=== PATIENT | female | born 1960 | race Caucasian/White ===

== ENCOUNTER 2016-03-22 00:50 | Observation (INO) | payer BC ==
[~2016-03-22] VITALS: Ht 170.2 cm; Wt 113.0 kg
[2016-03-22 00:54] VITALS: BP 142/80; PULSE 84; RESP 15; TEMP 97.5; O2SAT 98
[2016-03-22] MEDS ORDERED: LIPI10TA PO (03:14)
[2016-03-22] MEDS ORDERED: SODIUM CHLORIDE 0.9% FLUSH 5 ML FLUSH IVF PRN ×2 (03:30→05:15)
[2016-03-22 03:53] LABS: AUTOMATED NEUTROPHIL # 4.5 TH/MM3 (1.8-7.7); BASOPHIL # 0.1 TH/MM3 (0-0.2); BASOPHIL % 0.8 % (0.0-2.0); EOSINOPHIL # 0.2 TH/MM3 (0-0.4); EOSINOPHIL % 2.6 % (0.0-4.0); HEMATOCRIT 39.7 % (35.0-46.0); HEMO FLAGS DIFF FINAL; LYMPH % 25.8 % (9.0-44.0); LYMPHOCYTE # 1.9 TH/MM3 (1.0-4.8); MEAN CELL VOLUME 87.7 FL (80.0-100.0); MEAN CORPUSCULAR HEMOGLOBIN 30.4 PG (27.0-34.0); MEAN CORPUSCULAR HGB CONC 34.6 % (32.0-36.0); MONO % 10.7 % (0.0-8.0); NEUT % 60.1 % (16.0-70.0); PLATELET COUNT 316 TH/MM3 (150-450); RED BLOOD COUNT 4.52 MIL/MM3 (4.00-5.30); RED CELL DISTRIBUTION WIDTH 12.9 % (11.6-17.2); WHITE BLOOD COUNT 7.5 TH/MM3 (4.0-11.0)
[2016-03-22] MEDS ORDERED: RESP: ALBUTEROL 2.5 MG/IPRATROPIUM 0.5 MG NEB (SCH) NEB ONE (04:00)
[2016-03-22 04:02] LABS: ALT (GPT) 22 U/L (10-53); ANION GAP 5 MEQ/L (5-15); AST (GOT) 12 U/L (15-37); BICARBONATE 31.9 MEQ/L (21.0-32.0); BLOOD UREA NITROGEN 10 MG/DL (7-18); CHLORIDE 105 MEQ/L (98-107); GLOMERULAR FILTRATION RATE 92 ML/MIN (>89); MAGNESIUM 2.3 MG/DL (1.5-2.5); POTASSIUM 4.1 MEQ/L (3.5-5.1); SODIUM (NA) 142 MEQ/L (136-145)
[2016-03-22 04:07] LABS: ALKALINE PHOSPHATASE 84 U/L (45-117); APTT (PATIENT) 29.7 SEC (24.3-30.1); PROTHROMBIN TIME - PATIENT 10.8 SEC (9.8-11.6); TOTAL BILIRUBIN ADULT 0.4 MG/DL (0.2-1.0)
--- NOTE | 2016-03-22 04:30 | RADRPT ---
EXAM DATE/TIME: 03/22/2016 04:06 [facility] COMPARISON: No previous studies available for comparison. INDICATIONS : Patient states chest pains. MEDICAL HISTORY : Hypercholesterolemia. SURGICAL HISTORY : None. ENCOUNTER: Initial ACUITY: 1 day PAIN SCORE: 5/10 LOCATION: Bilateral chest FINDINGS: A single view of the chest demonstrates the lungs to be symmetrically aerated without evidence of mas s, infiltrate or effusion. The cardiomediastinal contours are unremarkable. Osseous structures are intact. CONCLUSION: No acute disease. Stanley Conde MD on March 22, 2016 at 4:29 Board Certified Radiologist. This report was verified electronically.
[2016-03-22 05:35] VITALS: O2SAT 98
[2016-03-22 05:52] VITALS: BP 109/64; PULSE 66; RESP 18; O2SAT 96
--- NOTE | 2016-03-22 06:11 | PD ---
HPI Chief Complaint: Chest Pain Time Seen by Provider: 03:45 Travel History International Travel<30 days: No Contact w/Intl Traveler<30days: No Traveled to known affect area: No History of Present Illness HPI Patient is a 55-year-old female presents to emergency department today with chest pain radiating to her neck and jaw and bilateral upper extremities. Patient states this is never happened to her before as far as the palpitations and her feeling in her chest. No history of heart attack in the past no history of blood clots. Patient states that accompanied with her chest pain a she is also had some shortness of breath as well as some nausea without vomiting. Her neck pain is fairly chronic but the shortness of breath prompted her come in and be seen today. Denies history of stasis or long trips recently. Denies any injury to her legs or blood clots in the legs. Denies any fever or cough. No interventions prior to arrival. Symptoms of been happening for approximately 4 hours prior to me seeing her. PFSH Past Medical History Arthritis: Yes (back ) High Cholesterol: Yes Gastrointestinal Disorders: Yes (ibs) Medical other: Yes (fibromyalgia, chronic pain ) Tetanus Vaccination: Unknown Influenza Vaccination: No ?: Not : 3 Para: 2 Miscarriage: 1 Past Surgical History Section: Yes Cholecystectomy: Yes Hysterectomy: Yes Other Surgery: Yes (bile duct surgery ) Social History Alcohol Use: Yes (occasional ) Tobacco Use: No Substance Use: No Allergies-Medications (Allergen,Severity, Reaction): Coded Allergies: No Known Allergies (Unverified , 03/22/16) Reported Meds & Prescriptions Reported Meds & Active Scripts Active Reported Lipitor (Atorvastatin Calcium) 10 Mg Tab 10 Mg PO HS Review of Systems Except as stated in HPI: all other systems reviewed are Neg Physical Exam Narrative GENERAL: Well-developed well-nourished, overweight in no apparent distress. SKIN: Warm and dry. HEAD: Atraumatic. Normocephalic. EYES: Pupils equal and round. No scleral icterus. No injection or drainage. ENT: No nasal bleeding or discharge. Mucous membranes pink and moist. NECK: Trachea midline. No JVD. CARDIOVASCULAR: Regular rate and rhythm. No murmur appreciated. RESPIRATORY: No accessory muscle use. Clear to auscultation. Breath sounds equal bilaterally. GASTROINTESTINAL: Abdomen soft, non-tender, nondistended. Hepatic and splenic margins not palpable. MUSCULOSKELETAL: No obvious deformities. No clubbing. No cyanosis. No edema. NEUROLOGICAL: Awake and alert. No obvious cranial nerve deficits. Motor grossly within normal limits. Normal speech. PSYCHIATRIC: Appropriate mood and affect; insight and judgment normal. Data Data Last Documented VS Vital Signs Date Time Temp Pulse Resp B/P Pulse Ox O2 Delivery O2 Flow Rate FiO2 03/22/16 00:54 97.5 84 15 142/80 98 Room Air Orders Electrocardiogram (03/22/16 01:17) Complete Blood Count With Diff (03/22/16 03:24) Comprehensive Metabolic Panel (03/22/16 03:24) Magnesium (Mg) (03/22/16 03:24) Prothrombin Time / Inr (Pt) (03/22/16 03:24) Act Partial Throm Time (Ptt) (03/22/16 03:24) Troponin I (03/22/16 03:24) Chest, Single Ap (03/22/16 03:24) Ecg Monitoring (03/22/16 03:24) Bilateral Bp Monitoring (03/22/16 03:24) Iv Access Insert/Monitor (03/22/16 03:24) Oximetry (03/22/16 03:24) Oxygen Administration (03/22/16 03:24) Sodium Chloride 0.9% Flush (Ns Flush) (03/22/16 03:30) Albuterol-Ipratropium Neb (Duoneb Neb) (03/22/16 04:00) D-Dimer (03/22/16 04:08) Activity Bed Rest With Brp (03/22/16 05:10) Vital Signs (Adult) Q4H (03/22/16 05:10) Cardiac Rhythm .As Directed (03/22/16 05:10) ^ Notify Dr: Other .PRN (03/22/16 05:10) ^ Notify Dr. Parameters (03/22/16 05:10) Resp Oxygen Nasal Cannula (03/22/16 ) Ckmb (Isoenzyme) Profile (03/22/16 05:10) Ckmb (Isoenzyme) Profile (03/22/16 08:10) Troponin I (03/22/16 05:10) Troponin I (03/22/16 08:10) Electrocardiogram (03/22/16 05:10) Electrocardiogram (03/22/16 08:10) ^ Obtain (03/22/16 05:10) Sodium Chloride 0.9% Flush (Ns Flush) (03/22/16 05:15) Sodium Chloride 0.9% Flush (Ns Flush) (03/22/16 09:00) Admit Order (Ed Use Only) (03/22/16 ) Labs Laboratory Tests Test 03/22/16 03:05 White Blood Count 7.5 TH/MM3 Red Blood Count 4.52 MIL/MM3 Hemoglobin 13.7 GM/DL Hematocrit 39.7 % Mean Corpuscular Volume 87.7 FL Mean Corpuscular Hemoglobin 30.4 PG Mean Corpuscular Hemoglobin 34.6 % Concent Red Cell Distribution Width 12.9 % Platelet Count 316 TH/MM3 Mean Platelet Volume 8.2 FL Neutrophils (%) (Auto) 60.1 % Lymphocytes (%) (Auto) 25.8 % Monocytes (%) (Auto) 10.7 % Eosinophils (%) (Auto) 2.6 % Basophils (%) (Auto) 0.8 % Neutrophils # (Auto) 4.5 TH/MM3 Lymphocytes # (Auto) 1.9 TH/MM3 Monocytes # (Auto) 0.8 TH/MM3 Eosinophils # (Auto) 0.2 TH/MM3 Basophils # (Auto) 0.1 TH/MM3 CBC Comment DIFF FINAL Differential Comment Prothrombin Time 10.8 SEC Prothromb Time International 1.0 RATIO Ratio Activated Partial 29.7 SEC Thromboplast Time D-Dimer Quantitative (PE/DVT) 0.30 MG/L FEU Sodium Level 142 MEQ/L Potassium Level 4.1 MEQ/L Chloride Level 105 MEQ/L Carbon Dioxide Level 31.9 MEQ/L Anion Gap 5 MEQ/L Blood Urea Nitrogen 10 MG/DL Creatinine 0.67 MG/DL Estimat Glomerular Filtration 92 ML/MIN Rate Random Glucose 99 MG/DL Calcium Level 9.4 MG/DL Magnesium Level 2.3 MG/DL Total Bilirubin 0.4 MG/DL Aspartate Amino Transf 12 U/L (AST/SGOT) Alanine Aminotransferase 22 U/L (ALT/SGPT) Alkaline Phosphatase 84 U/L Troponin I LESS THAN 0.02 NG/ML Total Protein 7.0 GM/DL Albumin 3.6 GM/DL MDM Medical Decision Making Medical Screen Exam Complete: Yes Emergency Medical Condition: Yes Differential Diagnosis Fibromyalgia, ACS, AMI, STEMI, NSTEMI, PE unlikely, pneumonia unlikely Narrative Course Patient was roomed in the emergency department, EKG is reassuring. Troponin negative, d-dimer negative. Patient states her pain is been resolved since lying in the stretcher. Declined any pain medicine in the ER. She was given aspirin emergency department, she declined oxygen. Discussed with her that while it is unlikely that she is having significant cardiac event I cannot prove this and discussed stress testing as either an inpatient and outpatient she opts for inpatient at this time. We'll be placing the chest pain center. Diagnosis Primary Impression: Chest pain Qualified Code: R07.9 - Chest pain, unspecified type Admitting Information Admitting Physician Requests: Observation Condition: Stable mDitry Hussein MD Mar 22, 2016 06:11
[2016-03-22] MEDS ORDERED: ASPIRIN 81 MG CHEW TAB CHEW ONE (06:15)
[2016-03-22 06:57] VITALS: BP 107/58; O2SAT 97
[2016-03-22 08:03] LABS: CREATINE KINASE 59 U/L (26-192)
[2016-03-22 09:00] VITALS: BP 119/70; PULSE 66; RESP 18; O2SAT 96
[2016-03-22] MEDS ORDERED: SODIUM CHLORIDE 0.9% FLUSH 5 ML FLUSH IVF SCH (09:00)
[2016-03-22 10:20] LABS: CREATINE KINASE 56 U/L (26-192)
[2016-03-22] MEDS ORDERED: REGADENOSON INJ 0.4 MG/5 ML SYR ONE (11:42)
[2016-03-22 12:41] LABS: HDL CHOLESTEROL 56.8 MG/DL (40.0-60.0)
--- NOTE | 2016-03-22 13:21 | RADRPT ---
EXAM DATE/TIME: 03/22/2016 11:04 [facility] COMPARISON: No previous studies available for comparison. INDICATIONS : Chest pain radiating to the neck, jaw and bilateral upper extremities with dyspnea and nausea. Angina . DOSE: 34.9 mCi Tc99m Myoview at stress. 11.0 mCi Tc99m Myoview at rest. 0.4 mg Lexiscan STRESS SYMPTOMS: Shortness of breath with a headache. EJECTION FRACTION: > 70% MEDICAL HISTORY : Hypercholesterolemia. SURGICAL HISTORY : Hysterectomy. Cholecystectomy. ENCOUNTER: Initial ACUITY: 1 day PAIN SCALE: 7/10 LOCATION: chest TECHNIQUE: The patient underwent pharmacologic stress with infusion of prescribed dose. Continuous ECG tracing was monitored during stress. Gated SPECT imaging was performed after stress and conventional SPECT i maging was performed at rest. The examination was performed on a SPECT/CT scanner, both attenuation and non-corrected datasets were reviewed. FINDINGS: DISTRIBUTION: The maximum perfused segment at stress is in the septal wall. PERFUSION STUDY: The pattern of perfusion at stress is within normal limits. GATED STUDY: There is intact wall motion and thickening without hypokinetic or dyskinetic segments. CONCLUSION: Normal examination. RISK CATEGORY: Low (<1% Annual Mortality Rate) Felipe Adrian MD on March 22, 2016 at 13:16 Board Certified Radiologist. This report was verified electronically.
--- NOTE | 2016-03-22 14:36 | EKG ---
Date Performed: 03/22/2016 Time Performed: 06:07:53 PTAGE: 55 years EKG: Sinus rhythm NORMAL ECG NO PREVIOUS TRACING DOCTOR: Hema Altamirano Interpretating Date/Time 03/22/2016 14:35:10
--- NOTE | 2016-03-22 14:36 | EKG ---
Date Performed: 03/22/2016 Time Performed: 01:30:17 PTAGE: 55 years EKG: Sinus rhythm BORDERLINE LEFT AXIS DEVIATION BORDERLINE ECG NO PREVIOUS TRACING DOCTOR: Hema Altamirano Interpretating Date/Time 03/22/2016 14:36:09
--- NOTE | 2016-03-22 14:57 | TR ---
Date Performed: 03/22/2016 Time Performed: 11:56:04 DOCTOR: Hema Altamirano DRUG LIST: CLINICAL HISTORY: ANGINA REASON FOR TEST: Angina REASON FOR ENDING: OBSERVATION: CONCLUSION: Lexiscan stress test was performed under standard four minute protocol. Radionuclid e was injected one minute prior to ending the test. No electrocardiographic abormalities were present to suggest ischemia. Nuclear imaging and interpretation are pending. COMMENTS:
--- NOTE | 2016-03-22 14:58 | HHI.DCPOC ---
Discharge Care Plan Diagnosis: (1) Chest pain (2) Hyperlipidemia Goals to Promote Your Health * To prevent worsening of your condition and complications * To maintain your health at the optimal level Directions to Meet Your Goals Take your medications as prescribed Follow your dietary instruction Follow activity as directed Keep your appointments as scheduled Take your immunizations and boosters as scheduled If your symptoms worsen call your PCP, if no PCP go to Urgent Care Center or Emergency Room Smoking is Dangerous to Your Health. Avoid second hand smoke Call the 24-hour hour crisis hotline for domestic abuse at [facility] Mar 22, 2016 14:58
--- NOTE | 2016-03-23 10:04 | MH ---
cc: MILAGROS ALTAMIRANO MD DATE OF ADMISSION: 03/22/2016 DATE OF 1960 CHIEF COMPLAINT Chest pain HISTORY OF PRESENT ILLNESS This is a 55-year old female who presents to the ED complaining of a discomfort in her chest that began last night. This is in the center of her chest. She felt nauseous and dizzy. She was short of breath. No diaphoresis. The discomfort is still there. She had a similar episode Saturday, but it did not last nearly as long. She cannot recall any recent cardiac workup. She has a history of hyperlipidemia, but states she stopped taking her Lipitor about six weeks ago. The patient states she did not think she needed to take it any longer. She is here for the winter. Denies recent illnesses. Denies fevers or chills. Denies history of CAD. PAST MEDICAL HISTORY 1. Hyperlipidemia, but stopped taking medicine six weeks ago. 2. Fibromyalgia 3. Chronic pain 4. Denies hypertension, diabetes and CAD. FAMILY HISTORY of CAD. SOCIAL HISTORY The patient quit smoking cigarettes one year ago. Prior to that, she smoked about a pack a day for about 30 years. She denies alcohol or illicit drugs. PAST SURGICAL HISTORY 1. 2. Cholecystectomy 3. Hysterectomy 4. Bile duct surgery ALLERGIES NO KNOWN DRUG ALLERGIES. MEDICATIONS Includes Lipitor which she stopped taking about six weeks ago. REVIEW OF SYSTEMS GENERAL: Denies fevers or chills. Denies recent illnesses. HEENT: Denies headache, earache, sore throat or difficulty swallowing. CARDIOVASCULAR: Describes the discomfort as mentioned above. Denies diaphoresis. Denies sensation of heart beating rapidly or irregular. Denies syncope. RESPIRATORY: She was short of breath. No inspirational chest discomfort. Denies coughing, wheezing or hemoptysis. GI: She was nauseous, but denies emesis. Denies abdominal pain. Denies diarrhea, constipation, or blood in the stool. MUSCULOSKELETAL: Denies joint pain or edema. Denies calf pain or edema. She does have chronic pain in her neck and shoulders. Denies calf pain or swelling. NEUROVASCULAR: Denies headache, but was feeling a little dizzy. Denies numbness or tingling of her extremities. ENDOCRINE: Denies by polyuria or polydipsia. HEMATOLOGIC: Denies easy bruising. SKIN: Denies rash or itching. PHYSICAL EXAMINATION VITAL SIGNS: In the emergency department include a blood pressure of 142/80, heart rate was 84, respirations were 15, pulse oximetry 98% on room air and she is afebrile. Most recent vital signs include a blood pressure 119/70, heart rate 66, respirations were 18, pulse oximetry 96% on room air. GENERAL: The patient seen in the examination room in no apparent distress. She is pleasant. She is obese at 113 kg. HEENT: Head is atraumatic and normocephalic. NECK: Supple without lymphadenopathy and trachea is midline. No JVD or carotid bruits. CARDIOVASCULAR: Regular rate and rhythm without murmur, gallop or rub. RESPIRATORY: Lungs are clear to auscultation bilaterally. No wheezing, rales or rhonchi. No use of accessory muscles. GI: Abdomen is nontender and nondistended. Bowel sounds are normal. No guarding or rebound. No obvious pulsatile mass or bruit. No CVA tenderness. Strong femoral pulses bilaterally. MUSCULOSKELETAL: Patient moving upper and lower extremities freely. No joint tenderness or edema. No calf tennis or edema, Homans' sign. Strong pulses in the upper and lower extremities. NEUROVASCULAR: The patient is alert and oriented. Cranial II XII are grossly intact. There are no focal deficits and speech is clear. SKIN: No rashes. Skin turgor is normal. LABORATORY DATA CBC is unremarkable. Coagulation studies are unremarkable including a D-dimer that is normal 0.30. A complete metabolic panel is normal. The first two sets of cardiac enzymes are normal. Third set is pending. Single view chest x-ray read by radiologist as no acute disease. EKG is sinus rhythm without significant ST-segment depression or elevations. ASSESSMENT AND PLAN 1. Chest pain: Her discomfort is atypical. She has been seen by Dr. Milagros Altamirano of cardiology in the chest pain center. At time, we will get a Lexiscan. If her stress test were to be unremarkable, we be discharging the patient with instruction to follow up with her local physician. 2. Hyperlipidemia: The patient should resume taking her statin. The patient stable at time. Dictated by JENA White MD LEROY Fabian/TREVA /10:02 AM /10:09 AM
== END 2016-03-22 18:12 | disposition home or self-care (01) ==
LOC: NEPC 00:50 → NEDA 05:11 → NEPFCDU 14:37
PROVIDERS: ADMIT Internal Medicine Cardiovascular Disease; ATTEND Internal Medicine Cardiovascular Disease
DX: R07.9 Chest pain, unspecified (principal); E78.5 Hyperlipidemia, unspecified; M79.7 Fibromyalgia; M54.2 Cervicalgia; G89.29 Other chronic pain; R94.31 Abnormal electrocardiogram [ECG] [EKG]; E78.00 Pure hypercholesterolemia, unspecified; K58.9 Irritable bowel syndrome, unspecified; M19.90 Unspecified osteoarthritis, unspecified site; Z87.891 Personal history of nicotine dependence
CPT/HCPCS: 71010; 78452; 80053; 80061; 82550; 83735; 84484; 85025; 85379; 85610; 85730; 93005; 93017; 99285; A9502; G0378; J2785

== ENCOUNTER 2016-05-05 11:53 | Emergency (ER) | payer BC ==
[~2016-05-05] VITALS: Ht 170.2 cm; Wt 112.0 kg
[~2016-05-05 11:53] MED LIST: LIPI10TA PO
[2016-05-05 12:10] VITALS: BP 140/94; PULSE 99; RESP 16; TEMP 98.1; O2SAT 96
[2016-05-05] MEDS ORDERED: TURM500C PO (12:26)
--- NOTE | 2016-05-05 12:54 | PD ---
HPI Chief Complaint: Numbness/Tingling Time Seen by Provider: 12:29 Travel History International Travel<30 days: No Contact w/Intl Traveler<30days: No Traveled to known affect area: No History of Present Illness HPI This patient complains of problems with numbness. She is been having it intermittently in the right side of her face for one month. However today it showed up in her right arm and right leg which prompted the emergency room visit. Spells usually lasted around an hour and resolved on the round. She has no muscle weakness or speech slurring or headache or confusion. No history of stroke or blood thinner use. Symptoms severity is moderate. No alleviating factors. PFSH Past Medical History Arthritis: Yes (back ) High Cholesterol: Yes Fibromyalgia: Yes Gastrointestinal Disorders: Yes (ibs) ?: Not : 3 Para: 2 Miscarriage: 1 Past Surgical History Section: Yes Cholecystectomy: Yes Hysterectomy: Yes Other Surgery: Yes (bile duct surgery ) Social History Alcohol Use: Yes (occasional ) Tobacco Use: No Substance Use: No Allergies-Medications (Allergen,Severity, Reaction): Coded Allergies: No Known Allergies (Unverified , 05/05/16) Reported Meds & Prescriptions Reported Meds & Active Scripts Active Reported Turmeric (Turmeric (Curcuma Longa)) 500 Mg Cap Mg PO DAILY Lipitor (Atorvastatin Calcium) 10 Mg Tab 10 Mg PO HS Review of Systems Neurologic: Positive: Sensory Disturbance Physical Exam Narrative GENERAL: Well-nourished, well-developed patient in no apparent distress. SKIN: Warm and dry. HEAD: Atraumatic. Normocephalic. EYES: Pupils equal and round. No scleral icterus. No injection or drainage. ENT: No nasal bleeding or discharge. Mucous membranes pink and moist. NECK: Trachea midline. No JVD. CARDIOVASCULAR: Regular rate and rhythm. No murmur appreciated. RESPIRATORY: No accessory muscle use. Clear to auscultation. Breath sounds equal bilaterally. GASTROINTESTINAL: Abdomen soft, non-tender, nondistended. Hepatic and splenic margins not palpable. MUSCULOSKELETAL: No obvious deformities. No clubbing. No cyanosis. No edema. NEUROLOGICAL: Awake and alert. No obvious cranial nerve deficits. Motor grossly within normal limits. Normal speech. Interestingly in the areas that feel numb to the patient she has complete sensation to sharp and light touch. It does not feel like pins and needles to her. PSYCHIATRIC: Appropriate mood and affect; insight and judgment normal. Data Data Last Documented VS Vital Signs Date Time Temp Pulse Resp B/P Pulse Ox O2 Delivery O2 Flow Rate FiO2 05/05/16 14:19 86 18 131/68 97 Room Air 05/05/16 12:[address] Brain W/O Iv Contrast(Rout) (05/05/16 ) Complete Blood Count With Diff (05/05/16 12:37) Basic Metabolic Panel (Bmp) (05/05/16 12:37) Act Partial Throm Time (Ptt) (05/05/16 12:37) Prothrombin Time / Inr (Pt) (05/05/16 12:37) Iv Access Insert/Monitor (05/05/16 12:37) Livestock Speculator / Telemetry [email or web address] (05/05/16 12:37) Labs Laboratory Tests Test 05/05/16 12:50 White Blood Count 8.2 TH/MM3 Red Blood Count 4.75 MIL/MM3 Hemoglobin 14.2 GM/DL Hematocrit 41.7 % Mean Corpuscular Volume 87.7 FL Mean Corpuscular Hemoglobin 30.0 PG Mean Corpuscular Hemoglobin 34.2 % Concent Red Cell Distribution Width 11.8 % Platelet Count 363 TH/MM3 Mean Platelet Volume 7.3 FL Neutrophils (%) (Auto) 74.3 % Lymphocytes (%) (Auto) 18.9 % Monocytes (%) (Auto) 5.0 % Eosinophils (%) (Auto) 1.2 % Basophils (%) (Auto) 0.6 % Neutrophils # (Auto) 6.1 TH/MM3 Lymphocytes # (Auto) 1.6 TH/MM3 Monocytes # (Auto) 0.4 TH/MM3 Eosinophils # (Auto) 0.1 TH/MM3 Basophils # (Auto) 0.0 TH/MM3 CBC Comment DIFF FINAL Differential Comment Prothrombin Time 10.9 SEC Prothromb Time International 1.0 RATIO Ratio Activated Partial 29.4 SEC Thromboplast Time Sodium Level 140 MEQ/L Potassium Level 4.2 MEQ/L Chloride Level 103 MEQ/L Carbon Dioxide Level 29.6 MEQ/L Anion Gap 7 MEQ/L Blood Urea Nitrogen 7 MG/DL Creatinine 0.74 MG/DL Estimat Glomerular Filtration 82 ML/MIN Rate Random Glucose 99 MG/DL Calcium Level 9.7 MG/DL MDM Medical Decision Making Medical Screen Exam Complete: Yes Emergency Medical Condition: Yes Medical Record Reviewed: Yes Differential Diagnosis Peripheral neuropathy, CVA, TIA, multiple sclerosis Narrative Course I have reviewed the patient's electronic medical record. IV placed Extended cardiac monitoring reveals sinus rhythm without ectopy Vital signs are normal Brain CT is normal Coagulation studies are normal CBC is normal Metabolic profile is normal This is a atypical presentation but I don't think she requires emergent hospitalization after 1 month of these symptoms. Her exam and vital signs and ER workup are normal Recommending outpatient neurology follow-up If she develops any more definitive stroke-type signs she should return and we went over these such as speech slurring or muscle weakness etc. She has intermittent complaint of numbness but actually I cannot detect any specific numbness to sensory testing She says she is very anxious in a could be her nerves but I advised her to follow up with neurology and would not blame it on that Diagnosis Primary Impression: Numbness Additional Instructions: Follow-up with Dr. Paula, neurologist Take a baby aspirin daily Med/Other Pt SpecificInfo: Other Disposition: 01 DISCHARGE HOME Condition: Stable Everardo Rodriguez MD May 05, 2016 12:54
[2016-05-05 12:59] LABS: AUTOMATED NEUTROPHIL # 6.1 TH/MM3 (1.8-7.7); BASOPHIL % 0.6 % (0.0-2.0); EOSINOPHIL # 0.1 TH/MM3 (0-0.4); EOSINOPHIL % 1.2 % (0.0-4.0); HEMATOCRIT 41.7 % (35.0-46.0); HEMO FLAGS DIFF FINAL; LYMPH % 18.9 % (9.0-44.0); LYMPHOCYTE # 1.6 TH/MM3 (1.0-4.8); MEAN CELL VOLUME 87.7 FL (80.0-100.0); MEAN CORPUSCULAR HGB CONC 34.2 % (32.0-36.0); NEUT % 74.3 % (16.0-70.0); PLATELET COUNT 363 TH/MM3 (150-450); RED BLOOD COUNT 4.75 MIL/MM3 (4.00-5.30); RED CELL DISTRIBUTION WIDTH 11.8 % (11.6-17.2); WHITE BLOOD COUNT 8.2 TH/MM3 (4.0-11.0)
[2016-05-05 13:07] LABS: POTASSIUM 4.2 MEQ/L (3.5-5.1)
[2016-05-05 13:10] LABS: BICARBONATE 29.6 MEQ/L (21.0-32.0)
[2016-05-05 13:13] LABS: APTT (PATIENT) 29.4 SEC (24.3-30.1); PROTHROMBIN TIME - PATIENT 10.9 SEC (9.8-11.6)
[2016-05-05 14:19] VITALS: BP 131/68; PULSE 86; RESP 18; O2SAT 97
--- NOTE | 2016-05-05 14:31 | RADHPO ---
EXAM DATE/TIME: 05/05/2016 13:10 [facility] COMPARISON: No previous studies available for comparison. INDICATIONS : Intermittent right facial and leg numbness for 2 weeks, increasing for the last 2 days. RADIATION DOSE: 64.31 CTDIvol (mGy) MEDICAL HISTORY : None SURGICAL HISTORY : Hysterectomy. Cholecystectomy. ENCOUNTER: Initial ACUITY: 2 weeks PAIN SCALE: 0/10 LOCATION: cranial TECHNIQUE: Multiple contiguous axial images were obtained of the head. Using automated exposure control and adj ustment of the mA and/or kV according to patient size, radiation dose was kept as low as reasonably a chievable to obtain optimal diagnostic quality images. FINDINGS: CEREBRUM: The ventricles are normal for age. No evidence of midline shift, mass lesion, hemorrhage or acute in farction. No extra-axial fluid collections are seen. POSTERIOR FOSSA: The cerebellum and brainstem are intact. The 4th ventricle is midline. The cerebellopontine angle i s unremarkable. EXTRACRANIAL: The visualized portion of the orbits is intact. SKULL: The calvaria is intact. No evidence of skull fracture. CONCLUSION: No acute intracranial findings. Torres Mabry MD on May 05, 2016 at 14:27 Board Certified Radiologist. This report was verified electronically.
== END 2016-05-05 15:20 | disposition home or self-care (01) ==
LOC: PHED 11:53
DX: R20.0 Anesthesia of skin (principal); M79.7 Fibromyalgia
CPT/HCPCS: 70450; 80048; 85025; 85610; 85730